=== PATIENT | male | born 1940 | race Two or more races ===

== ENCOUNTER 2016-11-19 13:01 | Inpatient (IN) | payer OTHER ==
[~2016-11-19] VITALS: Ht 165.1 cm; Wt 74.1 kg
[2016-11-19 14:02] LABS: Basophils # (auto) 0 uL; Basophils % (auto) 0.4 % (0.0-2.0); CONDITION Y; Eosinophils # (auto) 0.3 uL; Eosinophils % (auto) 4.2 % (0.0-7.0); Hematocrit 36.9 % (41.0-53.0); Hemoglobin 12.3 g/dL (13.5-17.5); Lymphocytes # (auto) 1.1 uL; Lymphocytes % (auto) 14.8 % (10.0-50.0); Mean Corpuscular Hemoglobin 31.6 pg (28.0-32.0); Mean Corpuscular Hgb Conc. 33.4 g/dL (32.0-36.0); Mean Corpuscular Volume 94.6 fL (80.0-100.0); Mean Platelet Volume 9.8 fL (7.4-10.4); Monocytes # (auto) 0.6 uL; Monocytes % (auto) 7.5 % (0.0-12.0); Neutrophils # (auto) 5.4 uL; Neutrophils % (auto) 73.1 % (37.0-80.0); Platelet Count (auto) 143 10^3/uL (140-450); Red Cell Distribution Width 14.6 % (11.6-16.0); White Blood Cell 7.3 10^3/uL (4.4-10.8)
[2016-11-19] MEDS ORDERED: cloNIDine HCL 0.1 MG TAB ONE (14:30)
[2016-11-19 14:36] LABS: Albumin 3.6 g/dL (3.4-5.0); BUN/Creatinine Ratio 6.4; Bilirubin, Total 0.7 mg/dL (0.2-1.0); Calcium 8.3 mg/dL (8.5-10.1); Potassium 4.6 mmol/L (3.5-5.1); Total Protein 6.9 g/dL (6.4-8.2)
[2016-11-19] MEDS ORDERED: cloNIDine HCL 0.1 MG TAB PO ONE (14:45)
[2016-11-19] MEDS ORDERED: LORazepam 0.5 MG TAB PO PRN (15:30)
[2016-11-19] MEDS ORDERED: ACETAMINOPHEN 500 MG TAB PO PRN (15:30)
[2016-11-19] MEDS ORDERED: TEMAZEPAM 15 MG CAP PO PRN (15:30)
[2016-11-19] MEDS ORDERED: NITROGLYCERIN 0.4 MG SL TAB SL PRN (15:30)
[2016-11-19] MEDS ORDERED: MORPHINE SULF INJ 2 MG/ML SYRINGE 1ML IV PRN ×2 (15:30)
[2016-11-19] MEDS ORDERED: ONDANSETRON HCL 4 MG/2 ML VIAL IV PRN (15:30)
[2016-11-19] MEDS ORDERED: LABETALOL HCL 5 MG/ML ML 20ML VIAL IV PRN (15:45)
[2016-11-19] MEDS ORDERED: hydrALAZINE HCL 20 MG/ML VL IV PRN (16:15)
[2016-11-19] MEDS: HYDROcodone-ACET 5/325MG TAB PO PRN (16:54)
[2016-11-19] MEDS ORDERED: SERT-274 PO (17:28)
[2016-11-19] MEDS ORDERED: DONE10TA37 PO (17:28)
[2016-11-19] MEDS ORDERED: CINA30TA2 PO (17:28)
[2016-11-19] MEDS ORDERED: GABA-497 PO (17:28)
[2016-11-19] MEDS ORDERED: CALC667C5 PO (17:28)
[2016-11-19] MEDS ORDERED: ALLO100T PO (17:28)
[2016-11-19 18:38] LABS: Cholesterol 126 mg/dL (< 200); HDL Cholesterol 35 mg/dL (40-59); LDL Cholesterol 73 mg/dL (< 100); Triglycerides 160 mg/dL (< 150)
[2016-11-19 22:00] VITALS: BP 127/62
[2016-11-19 22:33] VITALS: BP 127/62
[2016-11-20] MEDS: HYDROcodone-ACET 5/325MG TAB PO PRN (00:24)
[2016-11-20 05:30] VITALS: BP 125/57
[2016-11-20 07:15] LABS: Basophils # (auto) 0 uL; Basophils % (auto) 0.7 % (0.0-2.0); CONDITION Y; Eosinophils # (auto) 0.4 uL; Eosinophils % (auto) 5.7 % (0.0-7.0); Hematocrit 33.7 % (41.0-53.0); Hemoglobin 11.5 g/dL (13.5-17.5); Lymphocytes # (auto) 1.3 uL; Lymphocytes % (auto) 19.4 % (10.0-50.0); Mean Corpuscular Hemoglobin 32.1 pg (28.0-32.0); Mean Corpuscular Hgb Conc. 34.2 g/dL (32.0-36.0); Mean Corpuscular Volume 93.8 fL (80.0-100.0); Mean Platelet Volume 9.6 fL (7.4-10.4); Monocytes # (auto) 0.5 uL; Monocytes % (auto) 6.9 % (0.0-12.0); Neutrophils # (auto) 4.4 uL; Neutrophils % (auto) 67.3 % (37.0-80.0); Platelet Count (auto) 132 10^3/uL (140-450); Red Cell Distribution Width 14.5 % (11.6-16.0); White Blood Cell 6.6 10^3/uL (4.4-10.8)
[2016-11-20 07:32] LABS: INR 1.04 (0.9-1.15); Partial Thromboplastin Time 31.7 sec (22.64-33.71); Prothrombin Time 11.3 sec (9.37-12.3)
[2016-11-20 08:00] VITALS: BP 127/62
[2016-11-20 08:05] LABS: Albumin 3.2 g/dL (3.4-5.0); BUN/Creatinine Ratio 7.4; Bilirubin, Total 0.6 mg/dL (0.2-1.0); Calcium 7.8 mg/dL (8.5-10.1); Potassium 4.4 mmol/L (3.5-5.1); Total Protein 6.1 g/dL (6.4-8.2)
[2016-11-20 09:00] VITALS: BP 145/71
[2016-11-20] MEDS ORDERED: SODIUM CHL 0.9% 1000 ML BAG XX ONE (09:45)
[2016-11-20] MEDS ORDERED: PANTOPRAZOLE 40 MG TAB PO SCH (10:00)
[2016-11-20 12:53] VITALS: BP 123/53
[2016-11-20 16:45] VITALS: BP 135/54
[2016-11-20 17:00] VITALS: BP 135/54
== END 2016-11-20 18:30 | disposition home health service (06) | DRG 304 ==
LOC: ER 13:08 → TELE 13:09 → TELE-EAST 21:58
PROVIDERS: ADMIT Internal Medicine; ATTEND Internal Medicine
PROC: 5A1D00Z (ICD-10-PCS; principal; 2016-11-20)
DX: I16.0 Hypertensive urgency (principal); N18.6 End stage renal disease; I12.0 Hypertensive chronic kidney disease with stage 5 chronic kidney disease or end stage renal disease; E11.22 Type 2 diabetes mellitus with diabetic chronic kidney disease; E11.21 Type 2 diabetes mellitus with diabetic nephropathy; I67.2 Cerebral atherosclerosis; D63.8 Anemia in other chronic diseases classified elsewhere; E11.42 Type 2 diabetes mellitus with diabetic polyneuropathy; E66.3 Overweight; R00.1 Bradycardia, unspecified; Z99.2 Dependence on renal dialysis; Z88.0 Allergy status to penicillin; Z90.89 Acquired absence of other organs; Z68.27 Body mass index [BMI] 27.0-27.9, adult
CPT/HCPCS: 36415; 70450; 71010; 80053; 80061; 85025; 85610; 85730; 87081; 90935; 93005; 96374; J1642

== ENCOUNTER 2017-05-13 15:08 | Emergency (ER) | payer OTHER ==
[~2017-05-13] VITALS: Ht 157.5 cm; Wt 81.6 kg
[~2017-05-13 15:08] MED LIST: ALLO100T PO; CALC667C5 PO; CINA30TA2 PO; DONE10TA40 PO; GABA300C10 PO; SERT-274 PO
[2017-05-13 16:18] VITALS: BP 162/64
== END 2017-05-14 02:58 | disposition left against medical advice (07) ==
LOC: ER 15:13
DX: R05 Cough (principal); Z53.21 Procedure and treatment not carried out due to patient leaving prior to being seen by health care provider
CPT/HCPCS: 71046; 93005

== ENCOUNTER 2019-07-31 12:10 | Emergency (ER) | payer OTHER, MEDICAID ==
[~2019-07-31] VITALS: Ht 157.5 cm; Wt 76.2 kg
[2019-07-31 12:24] VITALS: BP 178/79
[2019-07-31] MEDS ORDERED: ACETAMINOPHEN/CODEINE#3 (300/30mg) TAB PO ONE (13:30)
== END 2019-07-31 13:59 | disposition home or self-care (01) ==
LOC: ER 12:10
DX: S52.572A Other intraarticular fracture of lower end of left radius, initial encounter for closed fracture (principal); S52.612A Displaced fracture of left ulna styloid process, initial encounter for closed fracture; S00.83XA Contusion of other part of head, initial encounter; M25.561 Pain in right knee; E11.22 Type 2 diabetes mellitus with diabetic chronic kidney disease; I12.0 Hypertensive chronic kidney disease with stage 5 chronic kidney disease or end stage renal disease; N18.6 End stage renal disease; Z88.0 Allergy status to penicillin; W18.39XA Other fall on same level, initial encounter; Y93.01 Activity, walking, marching and hiking; Y92.89 Other specified places as the place of occurrence of the external cause; Y99.8 Other external cause status
CPT/HCPCS: 29125; 70450; 73080; 73110; 73130; 73562

== ENCOUNTER 2020-03-10 10:55 | Inpatient (IN) | payer OTHER, MEDICAID ==
[~2020-03-10] VITALS: Ht 167.6 cm; Wt 68.0 kg
[~2020-03-10 10:55] MED LIST changes: -DONE10TA40 PO; +DONE1TAB88 PO; -SERT-274 PO; +SERT50TA19 PO
[2020-03-10] MEDS ORDERED: methylPREDNISolone SOD SUCC 125 MG/2 ML VL IV ONE (12:00)
[2020-03-10] MEDS ORDERED: ONDANSETRON HCL 4 MG/2 ML VIAL IV ONE (12:00)
[2020-03-10 12:34] LABS: Basophils # (auto) 0.1 10 ^3/uL (0-0.2); Basophils % (auto) 1.3 % (0.0-2.0); Eosinophils # (auto) 0 10 ^3/uL (0-0.8); Hematocrit 40.2 % (41.0-53.0); Hemoglobin 13.5 g/dL (13.5-17.5); Lymphocytes # (auto) 0.3 10 ^3/uL (0.4-5.4); Lymphocytes % (auto) 5.6 % (10.0-50.0); Mean Corpuscular Hemoglobin 31.7 pg (28.0-32.0); Mean Corpuscular Hgb Conc. 33.6 g/dL (32.0-36.0); Mean Corpuscular Volume 94.4 fL (80.0-100.0); Monocytes # (auto) 0.4 10 ^3/uL (0-1.3); Monocytes % (auto) 6.6 % (0.0-12.0); Neutrophils # (auto) 4.9 10 ^3/uL (1.6-8.6); Neutrophils % (auto) 86.5 % (37.0-80.0); Nucleated Red Blood Cells % 1.7 %; Red Blood Cells 4.26 10^6/uL (4.5-5.90); Red Cell Distribution Width 16.4 % (11.8-14.3); White Blood Cell 5.7 10^3/uL (4.4-10.8)
[2020-03-10 12:46] LABS: Albumin 3.3 g/dL (3.4-5.0); Calcium 8.4 mg/dL (8.5-10.1); Potassium 3.5 mmol/L (3.5-5.1)
[2020-03-10 12:51] LABS: BUN/Creatinine Ratio 7.5; Bilirubin, Total 1.7 mg/dL (0.2-1.0); Total Protein 6.1 g/dL (6.4-8.2)
[2020-03-10 13:02] LABS: Magnesium 2.4 mg/dL (1.6-2.6)
[2020-03-10 13:11] LABS: CRP High Sensitivity 9.37 mg/dL (< 0.3)
[2020-03-10] MEDS ORDERED: HYDROcodone-ACET 5/325MG TAB PO PRN (13:30)
[2020-03-10] MEDS ORDERED: ACETAMINOPHEN 325 MG TAB PO PRN (13:30)
[2020-03-10] MEDS ORDERED: NITROGLYCERIN 0.4 MG SL TAB SL PRN (13:30)
[2020-03-10] MEDS ORDERED: MORPHINE SULFATE INJECTION 2 MG/ML SYRG IV PRN ×2 (13:30)
[2020-03-10] MEDS ORDERED: ZINC SULFATE 220mg CAP or TAB PO ONE (13:30)
[2020-03-10] MEDS ORDERED: AZITHROMYCIN 500MG/ 250ML 250 ML IV ONE (13:30)
[2020-03-10] MEDS ORDERED: ONDANSETRON HCL 4 MG/2 ML VIAL IV PRN (13:30)
[2020-03-10] MEDS: CHOLECALCIFEROL (VITD3) 2,000 UNIT CAP/TAB PO SCH (14:07)
[2020-03-10] MEDS: DexAMETHasone SOD PHOS 10MG/1ML VIAL INJ IV SCH (14:08)
[2020-03-10] MEDS: ASCORBIC ACID 500 MG TAB PO SCH (14:08)
[2020-03-10] MEDS ORDERED: CLOPIDOGREL BISULFATE 75 MG TAB PO SCH (15:00)
[2020-03-10] MEDS ORDERED: SODIUM CHL 0.9% 1000 ML BAG XX ONE (15:00)
[2020-03-10] MEDS ORDERED: HEPARIN SODIUM (PORCINE) 5000 UNITS/ML 1ML VIAL IV ONE ×2 (15:00→17:00)
[2020-03-10] MEDS ORDERED: HEPARIN DRIP/D5W 100UNITS/ML 250 ML IV SCH ×3 (15:00→23:45)
[2020-03-10 16:00] VITALS: BP 177/78
[2020-03-10 16:26] LABS: INR 1.72 (0.9-1.15)
[2020-03-10 17:05] VITALS: BP 177/78
[2020-03-10 18:40] VITALS: BP 111/52
[2020-03-10 22:00] VITALS: BP 165/68
[2020-03-10] MEDS ORDERED: HEPARIN SODIUM (PORCINE) 5000 UNITS/ML 1ML VIAL SC SCH (22:00)
[2020-03-10 23:19] LABS: INR 1.62 (0.9-1.15)
[2020-03-10 23:20] LABS: Partial Thromboplastin Time 87.6 sec (23.0-31.2)
[2020-03-11 05:00] VITALS: BP 130/59
[2020-03-11 07:19] LABS: Basophils # (auto) 0 10 ^3/uL (0-0.2); Basophils % (auto) 0.2 % (0.0-2.0); Eosinophils # (auto) 0 10 ^3/uL (0-0.8); Hematocrit 50.8 % (41.0-53.0); Hemoglobin 16.5 g/dL (13.5-17.5); Lymphocytes # (auto) 0.4 10 ^3/uL (0.4-5.4); Lymphocytes % (auto) 6.4 % (10.0-50.0); Mean Corpuscular Hemoglobin 30.9 pg (28.0-32.0); Mean Corpuscular Hgb Conc. 32.5 g/dL (32.0-36.0); Mean Corpuscular Volume 95.1 fL (80.0-100.0); Monocytes # (auto) 0.3 10 ^3/uL (0-1.3); Neutrophils # (auto) 5.8 10 ^3/uL (1.6-8.6); Neutrophils % (auto) 89.4 % (37.0-80.0); Nucleated Red Blood Cells % 1.1 %; Red Blood Cells 5.34 10^6/uL (4.5-5.90); Red Cell Distribution Width 16.4 % (11.8-14.3); White Blood Cell 6.4 10^3/uL (4.4-10.8)
[2020-03-11 07:37] LABS: INR 1.62 (0.9-1.15); Partial Thromboplastin Time 49.5 sec (23.0-31.2)
[2020-03-11 07:45] LABS: Calcium 8.2 mg/dL (8.5-10.1); Magnesium 2.6 mg/dL (1.6-2.6); Potassium 3.2 mmol/L (3.5-5.1)
[2020-03-11 08:02] LABS: BUN/Creatinine Ratio 7.4; CRP High Sensitivity 7.1 mg/dL (< 0.3)
[2020-03-11 09:00] VITALS: BP 138/61
[2020-03-11] MEDS: ASPirin 81 mg TAB PO SCH (10:15)
[2020-03-11] MEDS: DexAMETHasone SOD PHOS 10MG/1ML VIAL INJ IV SCH (10:15)
[2020-03-11] MEDS: CHOLECALCIFEROL (VITD3) 2,000 UNIT CAP/TAB PO SCH (10:16)
[2020-03-11] MEDS: ASCORBIC ACID 500 MG TAB PO SCH (10:16)
[2020-03-11] MEDS: HEPARIN DRIP/D5W 100UNITS/ML 250 ML IV SCH (10:44)
[2020-03-11 13:00] VITALS: BP 115/59
[2020-03-11 15:35] LABS: INR 1.56 (0.9-1.15)
[2020-03-11 17:00] VITALS: BP 112/58
[2020-03-11 22:00] VITALS: BP 121/60
[2020-03-11 22:51] LABS: INR 1.51 (0.9-1.15); Partial Thromboplastin Time 53.8 sec (23.0-31.2)
[2020-03-11] MEDS: ATORVASTATIN 20 MG TAB PO SCH (23:03)
[2020-03-12 02:49] LABS: Basophils # (auto) 0 10 ^3/uL (0-0.2); Basophils % (auto) 0.3 % (0.0-2.0); Eosinophils # (auto) 0 10 ^3/uL (0-0.8); Hematocrit 44.1 % (41.0-53.0); Hemoglobin 14.3 g/dL (13.5-17.5); Lymphocytes # (auto) 0.2 10 ^3/uL (0.4-5.4); Lymphocytes % (auto) 2.2 % (10.0-50.0); Mean Corpuscular Hemoglobin 30.8 pg (28.0-32.0); Mean Corpuscular Hgb Conc. 32.5 g/dL (32.0-36.0); Mean Corpuscular Volume 94.5 fL (80.0-100.0); Monocytes # (auto) 0.4 10 ^3/uL (0-1.3); Monocytes % (auto) 3.7 % (0.0-12.0); Neutrophils # (auto) 9.9 10 ^3/uL (1.6-8.6); Neutrophils % (auto) 93.8 % (37.0-80.0); Red Blood Cells 4.66 10^6/uL (4.5-5.90); Red Cell Distribution Width 16.9 % (11.8-14.3); White Blood Cell 10.5 10^3/uL (4.4-10.8)
[2020-03-12 03:04] LABS: INR 1.51 (0.9-1.15); Partial Thromboplastin Time 64.5 sec (23.0-31.2)
[2020-03-12 03:06] LABS: BUN/Creatinine Ratio 9.1; Calcium 7.2 mg/dL (8.5-10.1); Magnesium 2.3 mg/dL (1.6-2.6); Potassium 3.4 mmol/L (3.5-5.1)
[2020-03-12 05:00] VITALS: BP 123/61
[2020-03-12] MEDS ORDERED: SODIUM CHL 0.9% 1000 ML BAG XX ONE (07:00)
[2020-03-12] MEDS: HEPARIN DRIP/D5W 100UNITS/ML 250 ML IV SCH (08:30)
[2020-03-12 08:44] VITALS: BP 101/56
[2020-03-12] MEDS: DexAMETHasone SOD PHOS 10MG/1ML VIAL INJ IV SCH (10:36)
[2020-03-12] MEDS: ASPirin 81 mg TAB PO SCH (10:36)
[2020-03-12] MEDS: ASCORBIC ACID 500 MG TAB PO SCH (10:36)
[2020-03-12] MEDS: CHOLECALCIFEROL (VITD3) 2,000 UNIT CAP/TAB PO SCH (10:37)
[2020-03-12 13:00] VITALS: BP 148/68
[2020-03-12] MEDS ORDERED: AZITHROMYCIN 500MG/ 250ML 250 ML IV SCH (16:15)
[2020-03-12 17:00] VITALS: BP 126/60
[2020-03-12 22:00] VITALS: BP 124/73
[2020-03-12] MEDS: AZITHROMYCIN 500MG/ 250ML 250 ML IV SCH (22:00)
[2020-03-12] MEDS: ATORVASTATIN 20 MG TAB PO SCH (22:04)
[2020-03-13] VITALS (9 sets, daily range): BP systolic 120–144; BP diastolic 47–68
[2020-03-13 02:23] LABS: Basophils # (auto) 0 10 ^3/uL (0-0.2); Basophils % (auto) 0.1 % (0.0-2.0); Eosinophils # (auto) 0 10 ^3/uL (0-0.8); Eosinophils % (auto) 0.3 % (0.0-7.0); Hematocrit 45.1 % (41.0-53.0); Hemoglobin 14.6 g/dL (13.5-17.5); Lymphocytes # (auto) 0.2 10 ^3/uL (0.4-5.4); Lymphocytes % (auto) 1.3 % (10.0-50.0); Mean Corpuscular Hemoglobin 30.5 pg (28.0-32.0); Mean Corpuscular Hgb Conc. 32.3 g/dL (32.0-36.0); Mean Corpuscular Volume 94.2 fL (80.0-100.0); Monocytes # (auto) 0.3 10 ^3/uL (0-1.3); Monocytes % (auto) 2.6 % (0.0-12.0); Neutrophils # (auto) 12.2 10 ^3/uL (1.6-8.6); Neutrophils % (auto) 95.7 % (37.0-80.0); Nucleated Red Blood Cells % 1.1 %; Red Blood Cells 4.79 10^6/uL (4.5-5.90); Red Cell Distribution Width 16.2 % (11.8-14.3); White Blood Cell 12.7 10^3/uL (4.4-10.8)
[2020-03-13 02:32] LABS: INR 1.34 (0.9-1.15); Partial Thromboplastin Time 44.1 sec (23.0-31.2)
[2020-03-13 02:33] LABS: BUN/Creatinine Ratio 8.1; Calcium 7.5 mg/dL (8.5-10.1); Potassium 3.1 mmol/L (3.5-5.1)
[2020-03-13] MEDS: ASPirin 81 mg TAB PO SCH (09:35)
[2020-03-13] MEDS: ASCORBIC ACID 500 MG TAB PO SCH (09:35)
[2020-03-13] MEDS: CHOLECALCIFEROL (VITD3) 2,000 UNIT CAP/TAB PO SCH (09:35)
[2020-03-13] MEDS ORDERED: POTASSIUM CHL 20 Meq TABLET PO ONE (09:45)
[2020-03-13 10:49] LABS: INR 1.41 (0.9-1.15)
[2020-03-13] MEDS: HEPARIN DRIP/D5W 100UNITS/ML 250 ML IV SCH ×2 (10:54→17:55)
[2020-03-13] MEDS: DexAMETHasone SOD PHOS 10MG/1ML VIAL INJ IV SCH (13:14)
[2020-03-13 16:50] LABS: INR 1.39 (0.9-1.15)
[2020-03-13 16:54] LABS: Partial Thromboplastin Time 103.8 sec (23.0-31.2)
[2020-03-13 17:38] LABS: Albumin 2.8 g/dL (3.4-5.0); Bilirubin, Direct 1.4 mg/dL (0-0.2)
[2020-03-13 17:41] LABS: Bilirubin, Total 2.3 mg/dL (0.2-1.0); Total Protein 5.5 g/dL (6.4-8.2)
[2020-03-13] MEDS ORDERED: REMDESIVIR 200 MG in NS 210ml LOADING DOSE ADULT IV ONE (20:00)
[2020-03-13] MEDS: BUDESONIDE (INHALATION) 180 MCG IH IN SCH (23:30)
[2020-03-13] MEDS: AZITHROMYCIN 500MG/ 250ML 250 ML IV SCH (23:35)
[2020-03-13] MEDS: ATORVASTATIN 20 MG TAB PO SCH (23:35)
[2020-03-14 01:05] LABS: INR 1.39 (0.9-1.15); Partial Thromboplastin Time 64.7 sec (23.0-31.2)
[2020-03-14 05:00] VITALS: BP 139/69
[2020-03-14] MEDS: BUDESONIDE (INHALATION) 180 MCG IH IN SCH ×2 (06:44→22:11)
[2020-03-14] MEDS ORDERED: SODIUM CHL 0.9% 1000 ML BAG XX ONE (07:00)
[2020-03-14 08:05] LABS: INR 1.31 (0.9-1.15); Partial Thromboplastin Time 55.7 sec (23.0-31.2)
[2020-03-14 08:10] LABS: Potassium 3.6 mmol/L (3.5-5.1)
[2020-03-14 08:20] LABS: Albumin 2.7 g/dL (3.4-5.0); BUN/Creatinine Ratio 10.1; Bilirubin, Total 1.7 mg/dL (0.2-1.0); Calcium 8.1 mg/dL (8.5-10.1); Total Protein 5.7 g/dL (6.4-8.2)
[2020-03-14 09:48] VITALS: BP 147/68
[2020-03-14] MEDS: ASCORBIC ACID 500 MG TAB PO SCH (10:00)
[2020-03-14] MEDS: DexAMETHasone SOD PHOS 10MG/1ML VIAL INJ IV SCH (11:59)
[2020-03-14] MEDS: CHOLECALCIFEROL (VITD3) 2,000 UNIT CAP/TAB PO SCH (12:00)
[2020-03-14] MEDS: ASPirin 81 mg TAB PO SCH (12:00)
[2020-03-14 13:00] VITALS: BP 166/76
[2020-03-14 13:43] LABS: Hepatitis A Ab IgM Negative
[2020-03-14 13:45] LABS: Hepatitis B Core IgM Negative
[2020-03-14 13:47] LABS: Hepatitis C Antibody Negative (Negative)
[2020-03-14 15:17] LABS: INR 1.52 (0.9-1.15); Partial Thromboplastin Time 53.5 sec (23.0-31.2)
[2020-03-14 17:00] VITALS: BP 101/39
[2020-03-14] MEDS: REMDESIVIR 100mg in NS 230ml DAILYx4DAYS (NO VENT) IV SCH (17:17)
[2020-03-14 22:00] VITALS: BP 142/72
[2020-03-14] MEDS: AZITHROMYCIN 500MG/ 250ML 250 ML IV SCH (22:54)
[2020-03-14] MEDS: ATORVASTATIN 20 MG TAB PO SCH (22:54)
[2020-03-15 05:48] VITALS: BP 151/58
[2020-03-15 05:52] LABS: INR 1.37 (0.9-1.15)
[2020-03-15 05:55] LABS: Calcium 7.9 mg/dL (8.5-10.1)
[2020-03-15 05:58] LABS: Albumin 2.8 g/dL (3.4-5.0); BUN/Creatinine Ratio 9.2
[2020-03-15 06:00] LABS: Bilirubin, Total 1.6 mg/dL (0.2-1.0); Total Protein 6.1 g/dL (6.4-8.2)
[2020-03-15] MEDS: HEPARIN DRIP/D5W 100UNITS/ML 250 ML IV SCH (06:01)
[2020-03-15] MEDS: BUDESONIDE (INHALATION) 180 MCG IH IN SCH ×2 (06:06→21:42)
[2020-03-15 06:53] LABS: Potassium 4.3 mmol/L (3.5-5.1)
[2020-03-15 08:48] VITALS: BP 144/63
[2020-03-15] MEDS: CHOLECALCIFEROL (VITD3) 2,000 UNIT CAP/TAB PO SCH (10:51)
[2020-03-15] MEDS: ASCORBIC ACID 500 MG TAB PO SCH (10:51)
[2020-03-15] MEDS: DexAMETHasone SOD PHOS 10MG/1ML VIAL INJ IV SCH (10:51)
[2020-03-15] MEDS: ASPirin 81 mg TAB PO SCH (10:51)
[2020-03-15 12:28] LABS: INR 1.46 (0.9-1.15); Partial Thromboplastin Time 63.1 sec (23.0-31.2)
[2020-03-15 13:00] VITALS: BP 130/69
[2020-03-15 16:54] VITALS: BP 138/65
[2020-03-15] MEDS: REMDESIVIR 100mg in NS 230ml DAILYx4DAYS (NO VENT) IV SCH (18:06)
[2020-03-15 19:49] LABS: INR 1.46 (0.9-1.15)
[2020-03-15 20:50] LABS: Partial Thromboplastin Time 90.5 sec (23.0-31.2)
[2020-03-15 21:00] VITALS: BP 146/71
[2020-03-15] MEDS: ATORVASTATIN 20 MG TAB PO SCH (21:56)
[2020-03-15] MEDS: AZITHROMYCIN 500MG/ 250ML 250 ML IV SCH (21:56)
[2020-03-16] VITALS (8 sets, daily range): BP systolic 118–137; BP diastolic 59–74
[2020-03-16] MEDS: BUDESONIDE (INHALATION) 180 MCG IH IN SCH ×2 (06:44→21:28)
[2020-03-16 07:16] LABS: Basophils # (auto) 0 10 ^3/uL (0-0.2); Eosinophils # (auto) 0 10 ^3/uL (0-0.8); Eosinophils % (auto) 0.2 % (0.0-7.0); Hematocrit 45.7 % (41.0-53.0); Hemoglobin 15.1 g/dL (13.5-17.5); Lymphocytes # (auto) 0.1 10 ^3/uL (0.4-5.4); Lymphocytes % (auto) 1.5 % (10.0-50.0); Mean Corpuscular Hemoglobin 30.7 pg (28.0-32.0); Mean Corpuscular Hgb Conc. 33.1 g/dL (32.0-36.0); Mean Corpuscular Volume 92.5 fL (80.0-100.0); Monocytes # (auto) 0.4 10 ^3/uL (0-1.3); Monocytes % (auto) 4.4 % (0.0-12.0); Neutrophils # (auto) 8.9 10 ^3/uL (1.6-8.6); Neutrophils % (auto) 93.9 % (37.0-80.0); Red Blood Cells 4.93 10^6/uL (4.5-5.90); Red Cell Distribution Width 16.6 % (11.8-14.3); White Blood Cell 9.4 10^3/uL (4.4-10.8)
[2020-03-16 07:30] LABS: INR 1.43 (0.9-1.15)
[2020-03-16] MEDS: HEPARIN DRIP/D5W 100UNITS/ML 250 ML IV SCH (08:22)
[2020-03-16] MEDS: DexAMETHasone SOD PHOS 10MG/1ML VIAL INJ IV SCH (10:38)
[2020-03-16] MEDS: CHOLECALCIFEROL (VITD3) 2,000 UNIT CAP/TAB PO SCH (10:38)
[2020-03-16] MEDS: ASPirin 81 mg TAB PO SCH (10:38)
[2020-03-16] MEDS: ASCORBIC ACID 500 MG TAB PO SCH (10:38)
[2020-03-16] MEDS: REMDESIVIR 100mg in NS 230ml DAILYx4DAYS (NO VENT) IV SCH (16:46)
[2020-03-16] MEDS: ATORVASTATIN 20 MG TAB PO SCH (22:40)
[2020-03-16] MEDS: AZITHROMYCIN 500MG/ 250ML 250 ML IV SCH (22:40)
[2020-03-17 05:00] VITALS: BP 137/65
[2020-03-17] MEDS: BUDESONIDE (INHALATION) 180 MCG IH IN SCH ×2 (06:07→22:13)
[2020-03-17 07:34] LABS: Basophils # (auto) 0 10 ^3/uL (0-0.2); Basophils % (auto) 0.1 % (0.0-2.0); Eosinophils # (auto) 0 10 ^3/uL (0-0.8); Hematocrit 44.7 % (41.0-53.0); Hemoglobin 14.6 g/dL (13.5-17.5); Lymphocytes # (auto) 0.2 10 ^3/uL (0.4-5.4); Lymphocytes % (auto) 2.5 % (10.0-50.0); Mean Corpuscular Hemoglobin 30.4 pg (28.0-32.0); Mean Corpuscular Hgb Conc. 32.8 g/dL (32.0-36.0); Mean Corpuscular Volume 92.8 fL (80.0-100.0); Monocytes # (auto) 0.4 10 ^3/uL (0-1.3); Monocytes % (auto) 6.5 % (0.0-12.0); Neutrophils # (auto) 5.9 10 ^3/uL (1.6-8.6); Neutrophils % (auto) 90.9 % (37.0-80.0); Nucleated Red Blood Cells % 0.1 %; Red Blood Cells 4.82 10^6/uL (4.5-5.90); White Blood Cell 6.5 10^3/uL (4.4-10.8)
[2020-03-17 07:58] LABS: Albumin 2.5 g/dL (3.4-5.0); BUN/Creatinine Ratio 12.3; Calcium 7.6 mg/dL (8.5-10.1); Potassium 4.8 mmol/L (3.5-5.1)
[2020-03-17 08:00] LABS: Bilirubin, Total 1.3 mg/dL (0.2-1.0); Total Protein 5.6 g/dL (6.4-8.2)
[2020-03-17 09:07] VITALS: BP 150/68
[2020-03-17] MEDS: DexAMETHasone SOD PHOS 10MG/1ML VIAL INJ IV SCH (10:08)
[2020-03-17] MEDS: ASPirin 81 mg TAB PO SCH (10:08)
[2020-03-17] MEDS: CHOLECALCIFEROL (VITD3) 2,000 UNIT CAP/TAB PO SCH (10:09)
[2020-03-17] MEDS: ASCORBIC ACID 500 MG TAB PO SCH (10:09)
[2020-03-17 12:47] VITALS: BP 142/61
[2020-03-17] MEDS: REMDESIVIR 100mg in NS 230ml DAILYx4DAYS (NO VENT) IV SCH (16:57)
[2020-03-17 17:00] VITALS: BP 132/65
[2020-03-17 22:00] VITALS: BP 136/67
[2020-03-17] MEDS: AZITHROMYCIN 500MG/ 250ML 250 ML IV SCH (22:00)
[2020-03-17] MEDS: ATORVASTATIN 20 MG TAB PO SCH (22:00)
[2020-03-18 05:00] VITALS: BP 135/61
[2020-03-18 06:40] LABS: Basophils # (auto) 0 10 ^3/uL (0-0.2); Basophils % (auto) 0.1 % (0.0-2.0); Eosinophils # (auto) 0 10 ^3/uL (0-0.8); Eosinophils % (auto) 0.1 % (0.0-7.0); Hematocrit 44.2 % (41.0-53.0); Hemoglobin 14.6 g/dL (13.5-17.5); Lymphocytes # (auto) 0.2 10 ^3/uL (0.4-5.4); Lymphocytes % (auto) 1.5 % (10.0-50.0); Mean Corpuscular Hemoglobin 30.2 pg (28.0-32.0); Mean Corpuscular Hgb Conc. 33.1 g/dL (32.0-36.0); Mean Corpuscular Volume 91.1 fL (80.0-100.0); Monocytes # (auto) 0.5 10 ^3/uL (0-1.3); Monocytes % (auto) 4.2 % (0.0-12.0); Neutrophils # (auto) 10.3 10 ^3/uL (1.6-8.6); Neutrophils % (auto) 94.1 % (37.0-80.0); Nucleated Red Blood Cells % 0.1 %; Red Blood Cells 4.85 10^6/uL (4.5-5.90); White Blood Cell 10.9 10^3/uL (4.4-10.8)
[2020-03-18] MEDS: BUDESONIDE (INHALATION) 180 MCG IH IN SCH ×2 (06:45→21:29)
[2020-03-18 06:59] LABS: Calcium 7.6 mg/dL (8.5-10.1); Potassium 5.1 mmol/L (3.5-5.1)
[2020-03-18 07:23] LABS: BUN/Creatinine Ratio 13.1; CRP High Sensitivity 6.83 mg/dL (< 0.3)
[2020-03-18 08:00] VITALS: BP 133/69
[2020-03-18] MEDS: CHOLECALCIFEROL (VITD3) 2,000 UNIT CAP/TAB PO SCH (10:19)
[2020-03-18] MEDS: ASPirin 81 mg TAB PO SCH (10:19)
[2020-03-18] MEDS: ASCORBIC ACID 500 MG TAB PO SCH (10:19)
[2020-03-18] MEDS: DexAMETHasone SOD PHOS 10MG/1ML VIAL INJ IV SCH (10:19)
[2020-03-18 12:00] VITALS: BP 143/68
[2020-03-18 17:00] VITALS: BP 137/75
[2020-03-18 22:00] VITALS: BP 133/59
[2020-03-18] MEDS: AZITHROMYCIN 500MG/ 250ML 250 ML IV SCH (22:30)
[2020-03-18] MEDS: ATORVASTATIN 20 MG TAB PO SCH (22:30)
[2020-03-19 05:00] VITALS: BP 122/59
[2020-03-19 07:17] LABS: Basophils # (auto) 0 10 ^3/uL (0-0.2); Basophils % (auto) 0.3 % (0.0-2.0); Eosinophils # (auto) 0 10 ^3/uL (0-0.8); Eosinophils % (auto) 0.2 % (0.0-7.0); Hematocrit 45.5 % (41.0-53.0); Hemoglobin 15.1 g/dL (13.5-17.5); Lymphocytes # (auto) 0.3 10 ^3/uL (0.4-5.4); Lymphocytes % (auto) 2.6 % (10.0-50.0); Mean Corpuscular Hemoglobin 30.3 pg (28.0-32.0); Mean Corpuscular Hgb Conc. 33.2 g/dL (32.0-36.0); Mean Corpuscular Volume 91.2 fL (80.0-100.0); Monocytes # (auto) 0.3 10 ^3/uL (0-1.3); Monocytes % (auto) 2.9 % (0.0-12.0); Neutrophils # (auto) 9.8 10 ^3/uL (1.6-8.6); Nucleated Red Blood Cells % 0.1 %; Red Blood Cells 4.99 10^6/uL (4.5-5.90); White Blood Cell 10.4 10^3/uL (4.4-10.8)
[2020-03-19] MEDS: BUDESONIDE (INHALATION) 180 MCG IH IN SCH ×2 (07:35→21:10)
[2020-03-19 07:50] LABS: Albumin 2.4 g/dL (3.4-5.0); BUN/Creatinine Ratio 14.2; Bilirubin, Total 1.2 mg/dL (0.2-1.0); Calcium 7.8 mg/dL (8.5-10.1); Potassium 5.2 mmol/L (3.5-5.1); Total Protein 5.6 g/dL (6.4-8.2)
[2020-03-19 08:02] LABS: CRP High Sensitivity 10.9 mg/dL (< 0.3)
[2020-03-19 09:00] VITALS: BP 130/64
[2020-03-19] MEDS ORDERED: SODIUM CHL 0.9% 1000 ML BAG XX ONE (09:45)
[2020-03-19] MEDS: ASCORBIC ACID 500 MG TAB PO SCH (10:23)
[2020-03-19] MEDS: ASPirin 81 mg TAB PO SCH (10:23)
[2020-03-19] MEDS: DexAMETHasone SOD PHOS 10MG/1ML VIAL INJ IV SCH (10:23)
[2020-03-19] MEDS: CHOLECALCIFEROL (VITD3) 2,000 UNIT CAP/TAB PO SCH (10:24)
[2020-03-19 10:27] LABS: Hepatitis B Surface Antigen Negative (Negative)
[2020-03-19 12:40] VITALS: BP 113/60
[2020-03-19] MEDS: SODIUM ZIRCONIUM CYCL 10 GM PAK PO SCH (15:59)
[2020-03-19 17:00] VITALS: BP 139/60
[2020-03-19 18:18] VITALS: BP 139/60
[2020-03-19] MEDS: AZITHROMYCIN 500MG/ 250ML 250 ML IV SCH (21:33)
[2020-03-19] MEDS: ATORVASTATIN 20 MG TAB PO SCH (21:34)
[2020-03-19 22:00] VITALS: BP 132/63
[2020-03-20 05:00] VITALS: BP 138/62
[2020-03-20] MEDS: BUDESONIDE (INHALATION) 180 MCG IH IN SCH ×2 (06:54→20:31)
[2020-03-20 08:44] VITALS: BP 155/67
[2020-03-20] MEDS: ASPirin 81 mg TAB PO SCH (09:37)
[2020-03-20] MEDS: ASCORBIC ACID 500 MG TAB PO SCH (09:37)
[2020-03-20] MEDS: DexAMETHasone SOD PHOS 10MG/1ML VIAL INJ IV SCH (09:37)
[2020-03-20] MEDS: SODIUM ZIRCONIUM CYCL 10 GM PAK PO SCH (09:37)
[2020-03-20] MEDS: CHOLECALCIFEROL (VITD3) 2,000 UNIT CAP/TAB PO SCH (09:38)
[2020-03-20 13:00] VITALS: BP 118/48
[2020-03-20] MEDS ORDERED: DOXYCYCLINE 100MG/250ML 250 ML IV SCH (14:00)
[2020-03-20 17:00] VITALS: BP 127/59
[2020-03-20] MEDS: DOXYCYCLINE 100MG/250ML 250 ML IV SCH (18:00)
[2020-03-20 18:40] VITALS: BP 127/59
[2020-03-20] MEDS: ATORVASTATIN 20 MG TAB PO SCH (21:30)
[2020-03-20] MEDS: METOPROLOL TARTRATE 25 MG TAB PO SCH (21:32)
[2020-03-20] MEDS: HEPARIN SODIUM (PORCINE) 5000 UNITS/ML 1ML VIAL SC SCH (21:34)
[2020-03-20 22:00] VITALS: BP 138/65
[2020-03-21 00:50] VITALS: BP 138/65
[2020-03-21 05:00] VITALS: BP 133/72
[2020-03-21] MEDS: DOXYCYCLINE 100MG/250ML 250 ML IV SCH ×2 (05:33→18:14)
[2020-03-21] MEDS: BUDESONIDE (INHALATION) 180 MCG IH IN SCH ×2 (05:52→22:00)
[2020-03-21 06:41] LABS: Hematocrit 39.3 % (41.0-53.0)
[2020-03-21 06:56] LABS: Calcium 8.4 mg/dL (8.5-10.1); Potassium 4.4 mmol/L (3.5-5.1)
[2020-03-21 06:58] LABS: BUN/Creatinine Ratio 12.6
[2020-03-21] MEDS ORDERED: SODIUM CHL 0.9% 1000 ML BAG XX ONE (07:00)
[2020-03-21 07:02] LABS: % Iron Saturation 59.8 % (20-55)
[2020-03-21 09:00] VITALS: BP 137/61
[2020-03-21] MEDS: METOPROLOL TARTRATE 25 MG TAB PO SCH ×2 (10:00→21:51)
[2020-03-21] MEDS: SODIUM ZIRCONIUM CYCL 10 GM PAK PO SCH (10:00)
[2020-03-21] MEDS: DexAMETHasone SOD PHOS 10MG/1ML VIAL INJ IV SCH (11:24)
[2020-03-21] MEDS: ASPirin 81 mg TAB PO SCH (11:25)
[2020-03-21] MEDS: ASCORBIC ACID 500 MG TAB PO SCH (11:27)
[2020-03-21] MEDS: CHOLECALCIFEROL (VITD3) 2,000 UNIT CAP/TAB PO SCH (11:27)
[2020-03-21] MEDS: HEPARIN SODIUM (PORCINE) 5000 UNITS/ML 1ML VIAL SC SCH ×2 (11:29→21:52)
[2020-03-21 13:00] VITALS: BP 149/70
[2020-03-21 17:35] VITALS: BP 129/68
[2020-03-21 21:00] VITALS: BP 132/68
[2020-03-21] MEDS ORDERED: EPOETIN ALFA 10,000 UNIT/1 ML VIAL SC ONE (21:00)
[2020-03-21] MEDS: ATORVASTATIN 20 MG TAB PO SCH (21:50)
[2020-03-22 05:00] VITALS: BP 129/62
[2020-03-22] MEDS: DOXYCYCLINE 100MG/250ML 250 ML IV SCH ×2 (05:34→18:16)
[2020-03-22] MEDS: BUDESONIDE (INHALATION) 180 MCG IH IN SCH ×2 (06:57→22:06)
[2020-03-22 07:27] LABS: Basophils # (auto) 0 10 ^3/uL (0-0.2); Basophils % (auto) 0.1 % (0.0-2.0); Eosinophils # (auto) 0 10 ^3/uL (0-0.8); Eosinophils % (auto) 0.1 % (0.0-7.0); Hematocrit 39.2 % (41.0-53.0); Hemoglobin 13.4 g/dL (13.5-17.5); Lymphocytes # (auto) 0.2 10 ^3/uL (0.4-5.4); Lymphocytes % (auto) 1.9 % (10.0-50.0); Mean Corpuscular Hemoglobin 30.9 pg (28.0-32.0); Mean Corpuscular Hgb Conc. 34.2 g/dL (32.0-36.0); Mean Corpuscular Volume 90.4 fL (80.0-100.0); Monocytes # (auto) 0.3 10 ^3/uL (0-1.3); Monocytes % (auto) 3.2 % (0.0-12.0); Neutrophils % (auto) 94.7 % (37.0-80.0); Red Blood Cells 4.34 10^6/uL (4.5-5.90); Red Cell Distribution Width 16.7 % (11.8-14.3); White Blood Cell 8.5 10^3/uL (4.4-10.8)
[2020-03-22 07:33] LABS: Calcium 8.3 mg/dL (8.5-10.1); Potassium 4.6 mmol/L (3.5-5.1)
[2020-03-22 07:38] LABS: INR 1.32 (0.9-1.15); Partial Thromboplastin Time 38.9 sec (23.0-31.2)
[2020-03-22 07:41] LABS: BUN/Creatinine Ratio 13.4; CRP High Sensitivity 11.5 mg/dL (< 0.3)
[2020-03-22 08:17] VITALS: BP 141/72
[2020-03-22] MEDS: ASPirin 81 mg TAB PO SCH (09:45)
[2020-03-22] MEDS: ASCORBIC ACID 500 MG TAB PO SCH (09:46)
[2020-03-22] MEDS: CHOLECALCIFEROL (VITD3) 2,000 UNIT CAP/TAB PO SCH (09:46)
[2020-03-22] MEDS: METOPROLOL TARTRATE 25 MG TAB PO SCH ×2 (10:00→22:27)
[2020-03-22] MEDS: DexAMETHasone SOD PHOS 10MG/1ML VIAL INJ IV SCH (12:22)
[2020-03-22] MEDS: HEPARIN SODIUM (PORCINE) 5000 UNITS/ML 1ML VIAL SC SCH ×2 (12:23→22:29)
[2020-03-22 12:26] VITALS: BP 96/56
[2020-03-22 17:21] VITALS: BP 118/58
[2020-03-22 22:00] VITALS: BP 119/63
[2020-03-22] MEDS: ATORVASTATIN 20 MG TAB PO SCH (22:27)
[2020-03-23 04:24] VITALS: BP 110/60
[2020-03-23 05:00] VITALS: BP 121/62
[2020-03-23] MEDS: DOXYCYCLINE 100MG/250ML 250 ML IV SCH ×2 (06:11→19:06)
[2020-03-23] MEDS: BUDESONIDE (INHALATION) 180 MCG IH IN SCH ×2 (06:48→21:34)
[2020-03-23 09:00] VITALS: BP 134/65
[2020-03-23] MEDS: ASPirin 81 mg TAB PO SCH (09:29)
[2020-03-23] MEDS: DexAMETHasone SOD PHOS 10MG/1ML VIAL INJ IV SCH (09:29)
[2020-03-23] MEDS: ASCORBIC ACID 500 MG TAB PO SCH (09:30)
[2020-03-23] MEDS: CHOLECALCIFEROL (VITD3) 2,000 UNIT CAP/TAB PO SCH (09:30)
[2020-03-23] MEDS: METOPROLOL TARTRATE 25 MG TAB PO SCH ×2 (09:30→22:32)
[2020-03-23] MEDS: HEPARIN SODIUM (PORCINE) 5000 UNITS/ML 1ML VIAL SC SCH ×2 (09:31→22:33)
[2020-03-23 13:00] VITALS: BP 115/59
[2020-03-23 17:00] VITALS: BP 148/72
[2020-03-23 20:29] LABS: Basophils # (auto) 0 10 ^3/uL (0-0.2); Basophils % (auto) 0.2 % (0.0-2.0); Eosinophils # (auto) 0 10 ^3/uL (0-0.8); Eosinophils % (auto) 0.1 % (0.0-7.0); Hematocrit 40.5 % (41.0-53.0); Hemoglobin 13.2 g/dL (13.5-17.5); Lymphocytes # (auto) 0.1 10 ^3/uL (0.4-5.4); Lymphocytes % (auto) 1.5 % (10.0-50.0); Mean Corpuscular Hemoglobin 30.3 pg (28.0-32.0); Mean Corpuscular Hgb Conc. 32.6 g/dL (32.0-36.0); Monocytes # (auto) 0.2 10 ^3/uL (0-1.3); Monocytes % (auto) 1.8 % (0.0-12.0); Neutrophils # (auto) 8.1 10 ^3/uL (1.6-8.6); Neutrophils % (auto) 96.4 % (37.0-80.0); Red Blood Cells 4.35 10^6/uL (4.5-5.90); Red Cell Distribution Width 17.2 % (11.8-14.3); White Blood Cell 8.4 10^3/uL (4.4-10.8)
[2020-03-23 20:48] LABS: Albumin 2.1 g/dL (3.4-5.0); Calcium 8.3 mg/dL (8.5-10.1); Potassium 4.4 mmol/L (3.5-5.1)
[2020-03-23 20:52] LABS: BUN/Creatinine Ratio 12.5; Bilirubin, Total 1.8 mg/dL (0.2-1.0); Total Protein 5.9 g/dL (6.4-8.2)
[2020-03-23 22:00] VITALS: BP 139/69
[2020-03-23] MEDS: ATORVASTATIN 20 MG TAB PO SCH (22:27)
[2020-03-24] VITALS (8 sets, daily range): BP systolic 121–161; BP diastolic 61–77
[2020-03-24] MEDS: DOXYCYCLINE 100MG/250ML 250 ML IV SCH ×2 (05:59→18:30)
[2020-03-24] MEDS: BUDESONIDE (INHALATION) 180 MCG IH IN SCH ×2 (06:10→22:59)
[2020-03-24 07:05] LABS: Basophils # (auto) 0 10 ^3/uL (0-0.2); Basophils % (auto) 0.1 % (0.0-2.0); Eosinophils # (auto) 0 10 ^3/uL (0-0.8); Eosinophils % (auto) 0.2 % (0.0-7.0); Hemoglobin 13.2 g/dL (13.5-17.5); Lymphocytes # (auto) 0.2 10 ^3/uL (0.4-5.4); Lymphocytes % (auto) 2.2 % (10.0-50.0); Mean Corpuscular Hgb Conc. 33.1 g/dL (32.0-36.0); Mean Corpuscular Volume 90.5 fL (80.0-100.0); Monocytes # (auto) 0.3 10 ^3/uL (0-1.3); Monocytes % (auto) 2.6 % (0.0-12.0); Neutrophils # (auto) 10.5 10 ^3/uL (1.6-8.6); Neutrophils % (auto) 94.9 % (37.0-80.0); Red Blood Cells 4.42 10^6/uL (4.5-5.90); Red Cell Distribution Width 17.2 % (11.8-14.3)
[2020-03-24 07:25] LABS: Albumin 2.2 g/dL (3.4-5.0); Calcium 8.8 mg/dL (8.5-10.1); Potassium 4.3 mmol/L (3.5-5.1)
[2020-03-24 07:28] LABS: BUN/Creatinine Ratio 13.3; Bilirubin, Total 1.7 mg/dL (0.2-1.0); Total Protein 6.1 g/dL (6.4-8.2)
[2020-03-24] MEDS: ASPirin 81 mg TAB PO SCH (09:42)
[2020-03-24] MEDS: DexAMETHasone SOD PHOS 10MG/1ML VIAL INJ IV SCH (09:42)
[2020-03-24] MEDS: ASCORBIC ACID 500 MG TAB PO SCH (09:43)
[2020-03-24] MEDS: METOPROLOL TARTRATE 25 MG TAB PO SCH ×2 (09:43→22:44)
[2020-03-24] MEDS: CHOLECALCIFEROL (VITD3) 2,000 UNIT CAP/TAB PO SCH (09:44)
[2020-03-24] MEDS: HEPARIN SODIUM (PORCINE) 5000 UNITS/ML 1ML VIAL SC SCH ×2 (09:44→22:44)
[2020-03-24] MEDS: ATORVASTATIN 20 MG TAB PO SCH (22:43)
[2020-03-25 01:55] VITALS: BP 118/62
[2020-03-25 05:00] VITALS: BP 149/67
[2020-03-25] MEDS: DOXYCYCLINE 100MG/250ML 250 ML IV SCH ×2 (05:52→19:06)
[2020-03-25] MEDS: BUDESONIDE (INHALATION) 180 MCG IH IN SCH ×2 (06:33→22:00)
[2020-03-25 08:04] LABS: Basophils # (auto) 0 10 ^3/uL (0-0.2); Basophils % (auto) 0.2 % (0.0-2.0); Eosinophils # (auto) 0 10 ^3/uL (0-0.8); Eosinophils % (auto) 0.1 % (0.0-7.0); Hematocrit 38.9 % (41.0-53.0); Hemoglobin 12.6 g/dL (13.5-17.5); Lymphocytes # (auto) 0.2 10 ^3/uL (0.4-5.4); Mean Corpuscular Hemoglobin 29.2 pg (28.0-32.0); Mean Corpuscular Hgb Conc. 32.3 g/dL (32.0-36.0); Mean Corpuscular Volume 90.4 fL (80.0-100.0); Monocytes # (auto) 0.4 10 ^3/uL (0-1.3); Neutrophils # (auto) 17.3 10 ^3/uL (1.6-8.6); Neutrophils % (auto) 96.7 % (37.0-80.0); Nucleated Red Blood Cells % 0.1 %; Red Cell Distribution Width 17.1 % (11.8-14.3); White Blood Cell 17.8 10^3/uL (4.4-10.8)
[2020-03-25 08:28] LABS: Potassium 4.1 mmol/L (3.5-5.1)
[2020-03-25 08:42] LABS: Albumin 2.1 g/dL (3.4-5.0); BUN/Creatinine Ratio 13.1; Bilirubin, Total 2.3 mg/dL (0.2-1.0); Calcium 8.6 mg/dL (8.5-10.1)
[2020-03-25] MEDS: ASPirin 81 mg TAB PO SCH (08:55)
[2020-03-25] MEDS: DexAMETHasone SOD PHOS 10MG/1ML VIAL INJ IV SCH (08:55)
[2020-03-25] MEDS: ASCORBIC ACID 500 MG TAB PO SCH (08:56)
[2020-03-25] MEDS: METOPROLOL TARTRATE 25 MG TAB PO SCH ×3 (08:56→22:33)
[2020-03-25] MEDS: CHOLECALCIFEROL (VITD3) 2,000 UNIT CAP/TAB PO SCH (08:56)
[2020-03-25 09:00] VITALS: BP 137/71
[2020-03-25] MEDS: HEPARIN SODIUM (PORCINE) 5000 UNITS/ML 1ML VIAL SC SCH ×2 (09:35→22:35)
[2020-03-25 13:00] VITALS: BP 116/62
[2020-03-25 17:00] VITALS: BP 148/65
[2020-03-25] MEDS: ATORVASTATIN 20 MG TAB PO SCH (22:31)
[2020-03-26 02:15] VITALS: BP 113/74
[2020-03-26 03:00] VITALS: BP 113/74
[2020-03-26 05:00] VITALS: BP 128/80
[2020-03-26] MEDS: DOXYCYCLINE 100MG/250ML 250 ML IV SCH (06:08)
[2020-03-26] MEDS: BUDESONIDE (INHALATION) 180 MCG IH IN SCH (06:15)
[2020-03-26] MEDS ORDERED: AMIODARONE HCL 150 MG in D5W 5% 100 ML IV ONE (06:30)
[2020-03-26] MEDS ORDERED: AMIODARONE 450mg/250ml AE 250 ML IV SCH ×2 (06:30→12:30)
[2020-03-26] MEDS ORDERED: SODIUM CHL 0.9% 1000 ML BAG XX ONE (07:00)
[2020-03-26 07:17] LABS: Basophils # (auto) 0.1 10 ^3/uL (0-0.2); Basophils % (auto) 0.3 % (0.0-2.0); Eosinophils # (auto) 0 10 ^3/uL (0-0.8); Hematocrit 40.2 % (41.0-53.0); Hemoglobin 13.2 g/dL (13.5-17.5); Lymphocytes # (auto) 0.2 10 ^3/uL (0.4-5.4); Lymphocytes % (auto) 1.1 % (10.0-50.0); Mean Corpuscular Hemoglobin 29.6 pg (28.0-32.0); Mean Corpuscular Hgb Conc. 32.8 g/dL (32.0-36.0); Mean Corpuscular Volume 90.4 fL (80.0-100.0); Monocytes # (auto) 0.5 10 ^3/uL (0-1.3); Monocytes % (auto) 2.4 % (0.0-12.0); Neutrophils # (auto) 18.5 10 ^3/uL (1.6-8.6); Neutrophils % (auto) 96.2 % (37.0-80.0); Red Blood Cells 4.45 10^6/uL (4.5-5.90); Red Cell Distribution Width 17.1 % (11.8-14.3); White Blood Cell 19.2 10^3/uL (4.4-10.8)
[2020-03-26 07:44] LABS: Potassium 4.7 mmol/L (3.5-5.1)
[2020-03-26 07:57] LABS: Albumin 2.1 g/dL (3.4-5.0); BUN/Creatinine Ratio 14.5; Bilirubin, Total 2.3 mg/dL (0.2-1.0); Calcium 9.2 mg/dL (8.5-10.1)
[2020-03-26 09:00] VITALS: BP 127/78
[2020-03-26] MEDS: ASPirin 81 mg TAB PO SCH ×2 (09:00→10:00)
[2020-03-26] MEDS: DexAMETHasone SOD PHOS 10MG/1ML VIAL INJ IV SCH ×2 (09:00→10:00)
[2020-03-26] MEDS: METOPROLOL TARTRATE 25 MG TAB PO SCH ×2 (09:01→10:00)
[2020-03-26] MEDS: ASCORBIC ACID 500 MG TAB PO SCH ×2 (09:02→10:00)
[2020-03-26] MEDS: CHOLECALCIFEROL (VITD3) 2,000 UNIT CAP/TAB PO SCH ×2 (09:02→14:31)
[2020-03-26] MEDS: HEPARIN SODIUM (PORCINE) 5000 UNITS/ML 1ML VIAL SC SCH (09:16)
[2020-03-26] MEDS ORDERED: MORPHINE SULFATE INJECTION 2 MG/ML SYRG IV ONE (09:50)
== END 2020-03-26 11:30 | DRG 177 ==
LOC: EDBD 10:55 → ER 10:55 → OBSVTOIN 10:56 → TELE 10:56 → INTOOBSV 10:56 → TELE-EAST 16:04 → EAST 03-20 18:39 → TELE-E-ADS 03-20 20:22
PROVIDERS: ADMIT Internal Medicine; ATTEND Internal Medicine
PROC: 5A1D70Z Performance of Urinary Filtration, Intermittent, Less than 6 Hours Per Day (ICD-10-PCS; 2020-03-10)
PROC: XW033E5 Introduction of Remdesivir Anti-infective into Peripheral Vein, Percutaneous Approach, New Technology Group 5 (ICD-10-PCS; principal; 2020-03-12)
PROC: 5A1D70Z Performance of Urinary Filtration, Intermittent, Less than 6 Hours Per Day (ICD-10-PCS; 2020-03-12)
PROC: 5A1D70Z Performance of Urinary Filtration, Intermittent, Less than 6 Hours Per Day (ICD-10-PCS; 2020-03-14)
PROC: 5A1D70Z Performance of Urinary Filtration, Intermittent, Less than 6 Hours Per Day (ICD-10-PCS; 2020-03-19)
PROC: 5A1D70Z Performance of Urinary Filtration, Intermittent, Less than 6 Hours Per Day (ICD-10-PCS; 2020-03-22)
PROC: 5A09457 Assistance with Respiratory Ventilation, 24-96 Consecutive Hours, Continuous Positive Airway Pressure (ICD-10-PCS; 2020-03-24)
PROC: 5A1D70Z Performance of Urinary Filtration, Intermittent, Less than 6 Hours Per Day (ICD-10-PCS; 2020-03-24)
DX: U07.1 COVID-19 (principal); J12.89 Other viral pneumonia; J96.01 Acute respiratory failure with hypoxia; I21.4 Non-ST elevation (NSTEMI) myocardial infarction; N18.6 End stage renal disease; J98.11 Atelectasis; I13.2 Hypertensive heart and chronic kidney disease with heart failure and with stage 5 chronic kidney disease, or end stage renal disease; E87.1 Hypo-osmolality and hyponatremia; A04.72 Enterocolitis due to Clostridium difficile, not specified as recurrent; Z66 Do not resuscitate; I46.9 Cardiac arrest, cause unspecified; E11.22 Type 2 diabetes mellitus with diabetic chronic kidney disease; I50.9 Heart failure, unspecified; G30.9 Alzheimer's disease, unspecified; F02.80 Dementia in other diseases classified elsewhere, unspecified severity, without behavioral disturbance, psychotic disturbance, mood disturbance, and anxiety; M10.9 Gout, unspecified; F32.9 Major depressive disorder, single episode, unspecified; Z99.2 Dependence on renal dialysis; R74.01 Elevation of levels of liver transaminase levels; Z88.0 Allergy status to penicillin; Z79.4 Long term (current) use of insulin; Z79.899 Other long term (current) drug therapy; Z53.29 Procedure and treatment not carried out because of patient's decision for other reasons
CPT/HCPCS: 36415; 71045; 80048; 80053; 80074; 80076; 82306; 82728; 82962; 83036; 83540; 83550; 83615; 83735; 83970; 84100; 84484; 85014; 85018; 85025; 85379; 85610; 85730; 86141; 87045; 87426; 87427; 87493; 90935; 93005; 93970; 94640; 94660; 96365; 96366; 96367; 96368; 96372; 96375; 96376; 97110; 97163; 97530; 99291; G0378; J0885; J1100; J2405; J3490; J7060